=== PATIENT | male | born 1965 | race Hispanic/Latino ===

== ENCOUNTER 2017-11-19 08:03 | Day surgery (SDC) | payer BC ==
[~2017-11-19 08:03] MED LIST: Lidocaine 1% PF 5 ML VIAL ONE; PROPOFOL 200 MG/20 ML VIAL ONE
[2017-11-19] MEDS ORDERED: Fluorouracil 100 MG, Enoxaparin Sodium 25 MG, EPINEPHrine 0.3 MG in Ophthalmic Irrigati... IVPB SCH (08:12)
[2017-11-19] MEDS ORDERED: Cyclopentolate 1% Opth Drop 2 ML BOT FS SCH (08:12)
[2017-11-19] MEDS ORDERED: Phenylephrine 2.5% Ophth Soln 5 ML BOT FS SCH (08:12)
[2017-11-19] MEDS ORDERED: Phenylephrine 2.5% Ophth Soln 5 ML BOT ONE (08:14)
[2017-11-19] MEDS ORDERED: Cyclopentolate 1% Opth Drop 2 ML BOT ONE (08:14)
[2017-11-19] MEDS ORDERED: Fentanyl 100 MCG/2 ML VIAL ONE (08:46)
[2017-11-19] MEDS ORDERED: PROPOFOL 20 ML ONE (08:48)
[2017-11-19] MEDS ORDERED: Midazolam HCl 2 mg/2 ml Vial ONE (08:48)
--- NOTE | 2017-11-19 11:13 | OP ---
DATE OF PROCEDURE: 11/19/2017 PREOPERATIVE DIAGNOSIS: Rhegmatogenous retinal detachment, left eye. POSTOPERATIVE DIAGNOSIS: Rhegmatogenous retinal detachment, left eye. PROCEDURE: Pars plana vitrectomy and retinal detachment repair, left eye. SURGEON: Abdi Bradford M.D. ANESTHESIA: Local with monitored anesthesia care. COMPLICATIONS: None. PROCEDURE IN DETAIL: The patient was identified in the preoperative holding area. Appropriate infor med consent for the planned surgical procedure on the left eye had been obtained, the patient was tra nsported to the operative suite. Appropriate cardiopulmonary monitoring established. Local anesthes ia was obtained using retrobulbar and modified Van Lint lid block using 50/50 mixture of 4% lidocaine , 0.75% bupivacaine. The patient was prepped and draped in the usual sterile manner for ophthalmic s urgery on the left eye. Lid speculum was placed in the left eye. The 25-gauge trocars were placed i n conjunctiva and sclera supratemporally, inferotemporally, and supranasally. Infusion line was plac ed inferotemporally. Light pipe and vitreous cutter were inserted into the eye. Core vitrectomy was performed. Multiple tears were noted in the retina at the 1, 2, 4, and 7 o'clock positions. [employer] ior drain retinotomy was created along the infratemporal arcade. Vitreous dissection was created 360 degrees. Special attention to all of the retinal tears. Complete air fluid exchange was performed with 10 minutes being allowed for fluid to drain posteriorly. A 360 laser was placed using endolaser delivery device. Fifteen percent perfluoropropane gas was infused into the eye. Sclerotomies were sutured closed. Eye was noted to retain pressure well. Retrobulbar Kenalog and subconjunctival Ance f were placed. Atropine and antibiotic ointment were placed, and the eye was patched and shielded. Patient taken to the postoperative recovery unit in good condition having suffered no immediate perio perative complications. DISCHARGE INSTRUCTIONS: Patient was instructed to keep patch and shield on, avoid lifting or bending , position left side down. Follow up in the morning with Dr. Bradford.
== END 2017-11-19 10:30 | disposition home or self-care (01) ==
LOC: SDC 08:03
PROVIDERS: ATTEND Ophthalmology Retina Specialist
PROC: 08T53ZZ Resection of Left Vitreous, Percutaneous Approach (ICD-10-PCS; principal; 2017-11-19)
DX: H33.022 Retinal detachment with multiple breaks, left eye (principal)
CPT/HCPCS: 67025; J0171; J1650; J2001; J2250; J2704; J3010; J9190

== ENCOUNTER 2022-10-01 07:15 | Emergency (ER) | payer BC ==
[2022-10-01] MEDS ORDERED: Iopamidol-370 76% 500 ML 1 ML ONE (08:39)
[2022-10-01 08:54] LABS: Hemoglobin 15.1 g/dL (14.0-18.0); Mean Corpuscular HGB CONC 34.7 g/dL (32.0-36.0); Mean Corpuscular Hemoglobin 35.3 pg (27.0-31.0); Red Blood Cell (RBC) Count 4.26 mill/uL (4.70-6.10); White Blood Cell (WBC) Count 7.7 10x3/uL (4.8-10.8)
[2022-10-01 09:00] LABS: ALT (SGPT) 41 U/L (8-55); AST (SGOT) 45 U/L (5-34); Albumin 3.9 g/dL (3.5-5.0); Alkaline Phosphatase 61 U/L (40-110); Anion Gap 12 mmol/L (10-20); BUN (Urea Nitrogen) 18 mg/dL (8.4-25.7); Bilirubin, Total 1.2 mg/dL (0.2-1.2); Calc. Creatinine Clearance 0 mL/min (70-130); Calcium 8.6 mg/dL (7.8-10.44); Carbon Dioxide 25 mmol/L (22-29); Chloride 102 mmol/L (98-107); Estimated GFR 106; Globulin 3.1 g/dL (2.4-3.5); Glucose 193 mg/dL (70-105); Potassium 3.6 mmol/L (3.5-5.1); Sodium 135 mmol/L (136-145)
[2022-10-01 09:04] LABS: #Lymphocytes 0.8 thou/uL (1.20-3.40); #Monocytes 0.4 thou/uL (0.11-0.59); #Neutrophils 6.5 thou/uL (1.40-6.50); %Basophils 0.4 % (0.0-1.0); %Eosinophils 0.6 % (0.0-10.0); %Lymphocytes 10.6 % (21.0-51.0); %Monocytes 4.8 % (0.0-10.0); %Neutrophils 83.7 % (42.0-75.0); Mean Platelet Volume 8.2 fL (7.4-10.4); Platelet Count 112 10x3/uL (130-400); Platelet Morphology Comment Appears Decreased; RBC Distribution Width 10.8 % (11.5-14.5); RBC Morphology Normal
== END 2022-10-01 11:07 | disposition home or self-care (01) ==
LOC: ERS 07:15
DX: S02.40FA Zygomatic fracture, left side, initial encounter for closed fracture (principal); E11.9 Type 2 diabetes mellitus without complications; W19.XXXA Unspecified fall, initial encounter
CPT/HCPCS: 36415; 70450; 70486; 71260; 72125; 74177; 80053; 85025

== ENCOUNTER 2022-10-01 19:26 | Emergency (ER) | payer BC ==
[2022-10-01] MEDS ORDERED: Ketorolac Tromethamine 30 MG/ML VIAL ONE (21:12)
[2022-10-01] MEDS ORDERED: Ondansetron PF 4 MG/2 ML Vial ONE (21:12)
[2022-10-01] MEDS ORDERED: HYDROmorphone 0.5 MG/0.5 ML SYRINGE ONE (21:14)
== END 2022-10-01 20:29 | disposition home or self-care (01) ==
LOC: ERS 19:26
DX: S02.82XA Fracture of other specified skull and facial bones, left side, initial encounter for closed fracture (principal); E11.9 Type 2 diabetes mellitus without complications; W19.XXXA Unspecified fall, initial encounter
CPT/HCPCS: 36415; 70450; 70486; 71260; 72125; 74177; 80053; 85025; 96374; 96375; J1170; J1885; J2405